=== PATIENT | male | born 2000 | race Caucasian/White ===

== ENCOUNTER 2024-06-18 14:47 | Outpatient (CLI) | payer BC, SELFPAY ==
[2024-06-18 19:06] LABS: Basophils # 0.1 K/mm3 (0-0.2); Basophils % 0.6 % (0.1-2.0); Eosinophils % 0.1 % (0.1-12.0); Hematocrit 47.7 % (42.0-52.0); Hemoglobin 15.7 g/dL (14.1-18.0); Lymphocytes # 1.3 K/mm3 (0.7-4.5); Mean Corpuscular HGB Conc 32.8 g/dL (31.8-35.4); Mean Corpuscular Hemoglobin 30.3 pg (27.0-31.2); Mean Corpuscular Volume 92.4 fl (80-94); Mean Platelet Volume 9.3 fl (7.4-10.4); Monocytes # 0.5 K/mm3 (0.1-1.0); Monocytes % 4.2 % (1.7-9.3); Neutrophils # 9.9 K/mm3 (1.8-7.8); Neutrophils % 84.1 % (37.0-80.0); Platelet Count 207 K/mm3 (142-424); Red Blood Count 5.17 M/mm3 (4.60-6.20); Red Cell Distribution Width 13.6 % (11.5-17.5); White Blood Count 11.7 K/mm3 (4.8-10.8)
[2024-06-18 19:38] LABS: Hemoglobin A1C 5.3 % (4.0-6.0)
[2024-06-18 19:53] LABS: Alanine Aminotransferase 32 U/L (12-78); Albumin Level 4.5 g/dl (3.5-5.0); Albumin/Globulin Ratio 1.5 (1.1-1.8); Alkaline Phosphatase 81 U/L (38-126); Anion Gap 10.8 mEq/L (5-15); Aspartate Amino Transferase 29 U/L (17-59); Bilirubin,Total 0.6 mg/dl (0.2-1.3); Blood Urea Nitrogen 10 mg/dl (9-20); Calcium 9.5 mg/dl (8.4-10.2); Carbon Dioxide 26 mmol/L (22.0-30.0); Chloride 106 mmol/L (98-107); Chol/HDL Ratio 3.9 (1-3.5); Cholesterol 213 mg/dl (140-200); Estimated Glomerular Filt Rate 140 ml/min (>60); GFR (African American) 169 ML/MIN (>60); Glucose 101 mg/dl (74-100); HDL Cholesterol 55 mg/dl (40-60); Potassium 3.8 mmoL/L (3.5-5.1); Sodium 139 mmol/L (136-145); Total Protein,Serum 7.5 g/dl (6.3-8.2); Triglycerides 90 mg/dl (30-150); VLDL Cholesterol 18 mg/dL (0-40)
[2024-06-18 20:08] LABS: Direct LDL Cholesterol 139.92 mg/dL (100-129)
[2024-06-18 22:29] LABS: Free T4 (Free Thyroxine) 1.15 ng/dl (0.78-2.19)
[2024-07-01 03:37] LABS: 1,25 Dihydroxy Vitamin D 54 pg/mL (.); 1,25-Dihydroxy, Vitamin D-2 <10 pg/mL (.); 1,25-Dihydroxy, Vitamin D-3 54 pg/mL (.)
== END 2024-06-18 23:59 | disposition home or self-care (01) ==
LOC: LAB.DROPOF 06-19 10:27
PROVIDERS: PCP Nurse Practitioner Acute Care; Visit Provider Nurse Practitioner Acute Care
DX: F33.9 Major depressive disorder, recurrent, unspecified (principal); F90.9 Attention-deficit hyperactivity disorder, unspecified type; F43.10 Post-traumatic stress disorder, unspecified; F41.1 Generalized anxiety disorder; F51.05 Insomnia due to other mental disorder
CPT/HCPCS: 80050; 80053; 80061; 82652; 83036; 84439; 84443; 85025

== ENCOUNTER 2025-05-30 15:10 | Outpatient (CLI) | payer MEDICAID, SELFPAY ==
--- OUTSIDE RECORDS SUMMARY | 2021-03-25 16:42 | XMS_ITS | Encounter Summary ---
Author Organization [place] [address] Care Team Providers Care Caustic Room Operator Name Role Phone Carolynn Graves MD Primary Care Provider [phone] Encounter Details Date Type Department Care Team (Latest Contact Info) Description 03/25/2021 4:42 PM EDT Hospital Encounter [facility] Referral Lab [address] [place] [address] Prosper Pierce, [place] [address], [place] [id number] Encounter for therapeutic drug level monitoring Social History Tobacco Use Types Packs/Day Years Used Date Smoking Tobacco: Never Smokeless Tobacco: Never Alcohol Use Standard Drinks/Week Comments Yes 0 (1 standard drink = 0.6 oz pur e alcohol) occ Overall Financial Resource Strain (CARDIA) Answe r Date Recorded How hard is it for you to pa y for the very basics like food, housing, medical care, and heating? Very hard 02/24/2024 PHQ-2 Answer Date Recorded PHQ-2 Total Score 6 11/22/2023 [facility] [place] [facility] Occupat [facility] - Occupational Stress Questionnaire Answer Date Recorded Do you feel stress - tense, restless, nervous, or anxious, or unable to sleep at night because your mind is troubled all the time - these days? Very much 02/24/2024 Exercise Vital Sign Answer Date Recorde d On average, how many days pe r week do you engage in moderate to strenuous exercise (like a brisk walk)? 5 days 02/24/2024 On average, how many minutes do you engage in exercise at this level? 60 min 02/24/2024 Hunger Vital Sign Answer Date Recorded Within the past 12 months, y ou worried that your food would run out before you got the money to buy more. Often true 02/24/20 24 Within the past 12 months, t he food you bought just didn't last and you didn't have money to get more. Often true 02/24/2024 PRAPARE - Transportation Answer Date Re corded In the past 12 months, has l ack of transportation kept you from medical appointments or from getting medications? Yes 12/2023 In the past 12 months, has l ack of transportation kept you from meetings, work, or from getting things needed for daily living? Yes 02/24/2024 Housing Stability Vital Sign Answer Guillermo e Recorded In the last 12 months, was t here a time when you were not able to pay the mortgage or rent on time? Yes 02/24/2024 Number of Times Moved in the Last Year Not on fi le 02/24/2024 Homeless in the Last Year Not on file 2023 Sex and Gender Information Value Date Recorded Sex Assigned at Not on file Legal Sex Male 9:17 PM EDT Gender Identity Not on file Sexual Orientation Not on file COVID-19 Exposure Response Date Recorded In the last 10 days, have yo u been in contact with someone who was confirmed or suspected to have Coronavirus/COVID-19? No / Unsure 09/08/2022 9:00 PM EST documented as of this encounter Functional Status * Cognitive and Functional Status Question Answer Date of Assessment Author Is the person deaf or does h e/she have serious difficulty hearing? No 11/22/2023 3:56 PM EST Elizabeth Maynard RMA Is the person blind or does he/she have serious difficulty seeing even when wearing glasses? No 11/22/2023 3:56 PM EST Elizabeth Cardenas RMA Does this person have seriou s difficulty walking or climbing stairs? No 11/22/2023 3:56 PM EST Elizabeth Boggs RMA Does this person have diffic ulty dressing or bathing? No 11/22/2023 3:56 PM EST Elizabeth Boggs RMA * Alcohol Screening Questionnaire (AUDIT) Question Answer Date of Assessment Author How often do you have a drin k containing alcohol? 0 04/20/2025 12:07 AM Diana Baldwin RN How many drinks containing alcohol do you have on a typical day when you are drinking? 0 04/20/2025 12:07 AM Ness Baldwin RN How often do you have six or more drinks on one occasion? 0 04/20/2025 12:07 AM Ness Baldwin RN AUDIT-C to Determine Rows 4-10 0 04/20/2025 12:07 AM Ness Baldwin RN * Alcohol Screening Score Answer Date of Assessment Author 0 04/20/2025 12:07 AM Ness Baldwin RN * Drug Screening Score Answer Date of Assessment Author 0 04/20/2025 12:07 AM Ness Baldwin RN * Is the person deaf or does he/she have serious difficulty hearing? Answer Date of Assessment Author No 02/12/2019 1:22 PM Nicho Murrell CMA * Is the person blind or does he/she have serious difficulty seeing even when wearing glasses? Answer Date of Assessment Author No 02/12/2019 1:22 PM Nicho Murrell CMA * Does this person have serious difficulty walking or climbing stairs? Answer Date of Assessment Author No 02/12/2019 1:22 PM Nicho Murrell CMA * Does this person have difficulty dressing or bathing? Answer Date of Assessment Author No 02/12/2019 1:22 PM Nicho Murrell CMA * Because of a physical, mental or emotional condition, does this person have difficulty doing errands alone such as visiting a doctor's office or shopping? Answer Date of Assessment Author No 02/12/2019 1:22 PM Nicho Murrell CMA * Question Answer Date of Assessment Author Little interest or pleasure in doing things 3 11/22/2023 3:56 PM Elizabeth Farr RMA Feeling down, depressed, or hopeless 3 11/22/2023 3:56 PM Elizabeth Farr RMA PHQ-2 Total Score 6 11/22/2023 3:56 PM Elizabeth Farr RMA Trouble falling or staying asleep, or sleeping too much 3 11/22/2023 3:56 PM Elizabeth Farr RMA Feeling tired or having little energy 3 11/22/2023 3:56 PM Elizabeth Farr RMA Poor appetite or overeating 3 11/22/2023 3:56 PM Elizabeth Farr RMA Feeling bad about yourself - or that you are a failure or have let yourself or your family down 3 11/22/2023 3:56 PM Elizabeth Farr RMA Trouble concentrating on things, such as reading the newspaper or watching television 3 11/22/2023 3:56 PM Elizabeth Farr RMA Moving or speaking so slowly that other people could have noticed. Or the opposite - being so fidgety or restless that you have been moving around a lot more than usual 3 11/22/2023 3:56 PM Elizabeth Farr RMA Thoughts that you would be better off , or of hurting yourself in some way 1 11/22/2023 3:56 PM Elizabeth Farr RMA PHQ-9 Total Score 25 11/22/2023 3:56 PM Elizabeth Farr RMA If you checked off any problems, how difficult have these problems made it for you to do your work, take care of things at home, or get along with other people? Extremely difficult 11/22/2023 3:56 PM Elizabeth Farr RMA * Question Answer Date of Assessment Author Feeling Nervous, Anxious, or on Edge 3 11/22/2023 3:57 PM Elizabeth Farr RMA Not Being Able to Stop or Co ntrol Worrying 3 11/22/2023 3:57 PM Elizabeth Farr RMA Worrying too Much About Diff erent Things 3 11/22/2023 3:57 PM Elizabeth Farr RMA Trouble Relaxing 3 11/22/2023 3:57 PM Elizabeth Cooney RMA Being so Restless That it is Hard to Sit Still 3 11/22/2023 3:57 PM EST Boggs, Elizabeth Norm, RMA Becoming Easily Annoyed or Irritable 3 11/22/2023 3:57 PM ABDI Boggs Elizabeth ZACKERY Zheng Feeling Afraid as if Somethi ng Awful Might Happen 3 11/22/2023 3:57 PM Elizabeth Farr RMA JAX-7 Total Score 21 11/22/2023 3:57 PM Elizabeth Farr RMA * Suicide Severity Rating Answer Date of Assessment Author High Risk 04/20/2025 2:10 PM EDT Ellie Eller RN * [place] Suicide Severity Rating Scale (Q shift for moderate and high) Question Answer Date of Assessment Author 1. In the past month, have y ou wished you were or wished you could go to sleep and not wake up? 0 04/20/2025 2:10 PM EDT Richelle Eller RN 2. In the past month, have y ou actually had any thoughts of killing yourself? (If no, skip to question 6) 1 04/20/2025 2:10 PM CEMT Richelle Eller RN 3. In the past month, have y ou been thinking about how you might do this? 2 04/20/2025 2:10 PM CEMT Richelle Eller RN 4. In the past month, have y ou had these thoughts and had some intention of acting on them? 20 04/20/2025 2:10 PM EDT Ellie Haynes RN 5. In the past month, have y ou started to work out or worked out the details of how to kill yourself? 0 04/20/2025 2:10 PM EDT Richelle Eller RN 6. Have you ever done anythi ng, started to do anything, or prepared to do anything to end your life? 3 04/20/2025 2:10 PM CEMT Richelle Eller RN Was this within the past 3 months? 20 04/20/2025 2:10 PM Richelle Martínez RN documented as of this encounter Mental Status * Cognitive and Functional Status Question Answer Entry Date Author Because of a physical, menta l or emotional condition, does this person have difficulty doing errands alone such as visiting a doctor's office or shopping? No 11/22/2023 3:56 PM Elizabeth Farr RMA Because of a physical, menta l or emotional condition, does this person have serious difficulty concentrating, remembering or making decisions? Yes 11/22/2023 3:56 PM Elizabeth Farr RMA * Because of a physical, mental or emotional condition, does this person have serious difficulty concentrating, remembering or making decisions? Answer Entry Date Author No 02/12/2019 1:22 PM EDT Nicho uRiz CMA documented in this encounter Plan of Treatment Scheduled Orders Name Type Priority Associated Diagnoses Orde r Schedule LIPID PANEL REFLEX Lab Routine Encounter for therapeutic drug level monitoring ONCE for 1 Occurrences starting 03/25/2021 until 04/29/2021 CBC WITH DIFF Lab Routine Encounter for therapeutic drug level monitoring ONCE for 1 Occurrences starting 03/25/2021 until 04/29/2021 BASIC METABOLIC PANEL Lab Routine Encounter for therapeutic drug level monitoring ONCE for 1 Occurrences starting 03/25/2021 until 04/29/2021 TSH REFLEX Lab Routine Encounter for therapeutic drug level monitoring ONCE for 1 Occurrences starting 03/25/2021 until 04/29/2021 RENAL FUNCTION PANEL Lab Routine Encounter for therapeutic drug level monitoring ONCE for 1 Occurrences starting 03/25/2021 until 04/29/2021 HEPATIC FUNCTION PANEL Lab Routine Encounter for therapeutic drug level monitoring ONCE for 1 Occurrences starting 03/25/2021 until 04/29/2021 HEMOGLOBIN A1C Lab Routine Encounter for therapeutic drug level monitoring ONCE for 1 Occurrences starting 03/25/2021 until 04/29/2021 T4, FREE (THYROXINE) Lab Routine Encounter for therapeutic drug level monitoring ONCE for 1 Occurrences starting 03/25/2021 until 04/29/2021 documented as of this encounter Goals Goal Patient Goal Type Associated Problems Recent Progress Patient-Stated? Author Maintain a healthy diet, exercise regularly and maintain an ideal body weight General No Linda Ruiz CMA documented as of this encounter Visit Diagnoses Diagnosis Encounter for therapeutic drug level monitoring Encounter for therapeutic drug monitoring documented in this encounter Additional Health Concerns Assessment Noted Time PHQ-9 Depression Total Score: 1 02/13/20 19 1:22 PM EDT PHQ-2 Depression Total Score: 1 02/13/20 19 1:22 PM EDT documented as of this encounter Care Teams Caustic Room Operator Relationship Specialty Start Date End Date Carolynn Graves MD [address] [place] [address] PCP - General Family Medicine 09/04/19 01/26/22 documented as of this encounter
--- OUTSIDE RECORDS SUMMARY | 2023-07-15 14:43 | XMS_ITS | Encounter Summary ---
Author Organization [facility] [place] [address] Care Team Providers Care Sewage Reticulation Drafting Officer Name Role Phone Abigail Spivey MD Primary Care Provider Encounter Details Date Type Department Care Team (Latest Contact Info) Description 07/15/2023 2:43 PM EDT Hospital Encounter [facility] Referral Lab [address] [place] [address] Jyoti Santiago, [place] [address] [place] [address] Other [facility] (current) drug therapy Social History Tobacco Use Types Packs/Day Years [...] Date Recorded PHQ-2 Total Score 6 11/22/2023 [facility] [place] of Occupat ional Health - Occupational Stress [...] on file Sexual Orientation Not on file documented as of this encounter Functional Status [...] dressing or bathing? No 11/22/2023 3:56 PM Elizabeth Farr RMA * Alcohol Screening Questionnaire (AUDIT) Question [...] on one occasion? 0 04/20/2025 12:07 AM Nses Baldwin RN AUDIT-C to Determine Rows 4-10 [...] hearing? Answer Date of Assessment Author No 12/29/2021 3:23 PM Vandana Hess MA * Is the person blind or does he/she have serious difficulty seeing even when wearing glasses? Answer Date of Assessment Author No 12/29/2021 3:23 PM Vandana Hess MA * Does this person have serious difficulty walking or climbing stairs? Answer Date of Assessment Author No 12/29/2021 3:23 PM Vandana Hess MA * Does this person have difficulty dressing or bathing? Answer Date of Assessment Author No 12/29/2021 3:23 PM Vandana Hess MA * Because of a physical, mental or emotional condition, does this person have difficulty doing errands alone such as visiting a doctor's office or shopping? Answer Date of Assessment Author No 12/29/2021 3:23 PM Vandana Hess MA * Question Answer Date of Assessment Author [...] to Sit Still 3 11/22/2023 3:57 PM Elizabeth Farr RMA Becoming Easily Annoyed or Irritable 3 11/22/2023 3:57 PM Elizabeth Farr RMA Feeling Afraid as if Somethi ng Awful Might Happen 3 11/22/2023 3:57 PM Elizabeth Farr RMA JAX-7 Total Score 21 11/22/2023 3:57 PM ABDI BoggsElizabeth RMA * Suicide Severity Rating Answer Date of Assessment Author High Risk 04/20/2025 2:10 PM Ellie Martínez RN * [place] Suicide Severity Rating Scale (Q shift for [...] to question 6) 1 04/20/2025 2:10 PM Richelle Martínez RN 3. In the past month, have y ou been thinking about how you might do this? 2 04/20/2025 2:10 PM CEMT Richelle Eller RN 4. In the past month, have y ou had these thoughts and had some intention of acting on them? 20 04/20/2025 2:10 PM CEMT Ellie Haynes RN 5. In the past month, have y ou started to work out or worked out the details of how to kill yourself? 0 04/20/2025 2:10 PM CEMT Richelle Eller RN 6. Have you ever done anythi ng, started to do anything, or prepared to do anything to end your life? 3 04/20/2025 2:10 PM Richelle Martínez RN Was this within the past 3 months? 20 04/20/2025 2:10 PM Richelle Martínez RN documented as of this encounter Mental Status * Cognitive and Functional Status Question Answer Entry Date Author Because of a physical, menta l or emotional condition, does this person have difficulty doing errands alone such as visiting a doctor's office or shopping? No 11/22/2023 3:56 PM Elizabeth Farr ZACKERY Zheng Because of a physical, menta l or emotional condition, does this person have serious difficulty concentrating, remembering or making decisions? Yes 11/22/2023 3:56 PM EST Elizabeth Boggs, ZACKERY * Because of a physical, mental or emotional condition, does this person have serious difficulty concentrating, remembering or making decisions? Answer Entry Date Author No 12/29/2021 3:23 PM EST Vandana Medina MA documented in this encounter Plan of Treatment Scheduled Orders Name Type Priority Associated Diagnoses Orde r Schedule CBC WITH DIFF Lab Routine Other local company intermodal truck driver (current) drug therapy ONCE for 1 Occurrences starting 07/15/2023 until 08/19/2023 COMPREHENSIVE METABOLIC PANEL Lab Routine Other [facility] (current) drug therapy ONCE for 1 Occurrences starting 07/15/2023 until 08/19/2023 HEMOGLOBIN A1C Lab Routine Other local company intermodal truck driver (current) drug therapy ONCE for 1 Occurrences starting 07/15/2023 until 08/19/2023 LIPID PANEL REFLEX Lab Routine Other [facility] (current) drug therapy ONCE for 1 Occurrences starting 07/15/2023 until 08/19/2023 THYROID STIMULATING HORMONE Lab Routine Other local company intermodal truck driver (current) drug therapy ONCE for 1 Occurrences starting 07/15/2023 until 08/19/2023 HEPATIC FUNCTION PANEL Lab Routine Other local company intermodal truck driver (current) drug therapy ONCE for 1 Occurrences starting 07/15/2023 until 08/19/2023 documented as of this encounter Goals Goal Patient Goal Type Associated Problems Recent Progress Patient-Stated? Author Maintain a healthy diet, exercise regularly and maintain an ideal body weight Linda Copeland CMA documented as of this encounter Visit Diagnoses Diagnosis Other local company intermodal truck driver (current) drug therapy documented in this encounter Additional Health Concerns Assessment Noted Time PHQ-9 Depression Total Score: 2 12/30/19 3:23 PM EST PHQ-2 Depression Total Score: 2 12/30/19 3:23 PM EST documented as of this encounter Care Teams Sewage Reticulation Drafting Officer Relationship Specialty Start Date End Date Abigail Spivey MD [address] [place] [address] PCP - General Family Medicine 01/27/22 documented as of this encounter
--- OUTSIDE RECORDS SUMMARY | 2023-08-02 15:02 | XMS_ITS | Encounter Summary ---
Author Organization [place] [address] Care Team Providers Care Splitter Head Name Role Phone Abigail Spivey MD Primary Care Provider Encounter Details Date Type Department Care Team (Latest Contact Info) Description 08/02/2023 3:02 PM EDT Hospital Encounter [facility] Referral Lab [address] [id number] Jesusita Aguilar, [place] [address] [phone] Encounter for general adult medical examination without abnormal findings Social History Tobacco Use Types Packs/Day Years [...] Date Recorded PHQ-2 Total Score 6 11/22/2023 [facility] [place] of Occupat ional Health - Occupational Stress [...] k containing alcohol? 0 04/20/2025 12:07 AM EDT Diana Marx RN How many drinks containing alcohol do [...] Happen 3 11/22/2023 3:57 PM Elizabeth Farr RMAugie JAX-7 Total Score 21 11/22/2023 3:57 PM ABDI Boggs Elizabeth Zheng AUGUSTAugie * Suicide Severity Rating Answer Date of Assessment Author High Risk 04/20/2025 2:10 PM Ellie Martínez RN * [place] Suicide Severity Rating Scale (Q shift for [...] end your life? 3 04/20/2025 2:10 PM EDRichelle Cook RN Was this within the past 3 [...] Yes 11/22/2023 3:56 PM EST Elizabeth Boggs, RMAugie * Because of a physical, mental or emotional condition, does this person have serious difficulty concentrating, remembering or making decisions? Answer Entry Date Author No 12/29/2021 3:23 PM Vandana Hess MA documented in this encounter Plan of Treatment Scheduled Orders Name Type Priority Associated Diagnoses Orde r Schedule HEMOGLOBIN A1C Lab Routine Encounter for general adult medical examination without abnormal findings ONCE for 1 Occurrences starting 08/02/2023 until 09/06/2023 TSH REFLEX Lab Routine Encounter for general adult medical examination without abnormal findings ONCE for 1 Occurrences starting 08/02/2023 until 09/06/2023 CBC WITH DIFF Lab Routine Encounter for general adult medical examination without abnormal findings ONCE for 1 Occurrences starting 08/02/2023 until 09/06/2023 COMPREHENSIVE METABOLIC PANEL Lab Routine Encounter for general adult medical examination without abnormal findings ONCE for 1 Occurrences starting 08/02/2023 until 09/06/2023 HEPATITIS B SURFACE ANTIBODY Lab Routine Encounter for general adult medical examination without abnormal findings ONCE for 1 Occurrences starting 08/02/2023 until 09/06/2023 MISCELLANEOUS LAB Lab Routine Encounter for general adult medical examination without abnormal findings ONCE for 1 Occurrences starting 08/02/2023 until 09/06/2023 LIPID PANEL REFLEX Lab Routine Encounter for general adult medical examination without abnormal findings ONCE for 1 Occurrences starting 08/02/2023 until 09/06/2023 VITAMIN D 25 HYDROXY Lab Routine Encounter for general adult medical examination without abnormal findings ONCE for 1 Occurrences starting 08/02/2023 until 09/06/2023 HIV AG/AB Lab Routine Encounter for general adult medical examination without abnormal findings ONCE for 1 Occurrences starting 08/02/2023 until 09/06/2023 HCV ANTIBODY SCREEN W/ REFLEX Lab Routine Encounter for general adult medical examination without abnormal findings ONCE for 1 Occurrences starting 08/02/2023 until 09/06/2023 documented as of this encounter Goals Goal Patient Goal Type Associated Problems Recent Progress Patient-Stated? Author Maintain a healthy diet, exercise regularly and maintain an ideal body weight Linda Copeland CMA documented as of this encounter Visit Diagnoses Diagnosis Encounter for general adult medical examination without abnormal findings Routine general medical examination at a health care facility documented in this encounter Additional Health Concerns Assessment Noted Time PHQ-9 Depression Total Score: 2 12/30/19 22 3:23 PM EST PHQ-2 Depression Total Score: 2 12/30/19 22 3:23 PM EST documented as of this encounter Care Teams Splitter Head Relationship Specialty Start Date End Date Abigail Spivey MD [address] [place] [address] PCP - General Family Medicine 01/27/22 documented as of this encounter
--- OUTSIDE RECORDS SUMMARY | 2025-04-19 23:32 | XMS_ITS | Encounter Summary ---
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 [facility] Potassium 3.9 3.5 - 5.0 mmol/L 04/20/2025 12:16 AM EDT [facility] Chloride 107 98 - 107 mmol/L 04/20/2025 12:16 AM EDT [facility] Total CO2 22 22 - 29 mmol/L 04/20/2025 12:16 AM EDT [facility] Anion Gap 12 7 - 16 mmol/L 04/20/2025 12:16 AM EDT [facility] Calcium 9.0 8.6 - 10.4 mg/dL 04/20/2025 12:16 AM EDT [facility] Glucose Lvl 105(H) 70 - 99 mg/dL 04/20/2025 12:16 AM EDT [facility] BUN 8 6 - 20 mg/dL 04/20/2025 12:16 AM EDT [facility] Creatinine 0.91 0.67 - 1.30 mg/dL 04/20/2025 12:16 AM EDT [facility] eGFR (CKD-EPIcr 2020) 121 >=60 mL/min/1.7 3 m2 04/20/2025 12:16 AM EDT [facility] Comment:Estimated GFR was ca lculated using the CKD-EPIcr (2020) equation refit without race. The equation is recommended by the [employer] - [place] [employer]ph[employer] Task Force. Blood VENOUS BLOOD / Unknown Venipuncture / Unknown 04/19/2025 11:47 PM EDT 04/19/2025 11:50 PM EDT Renetta Longoria MD CHEMISTRY ORDERABLES Archana l Result [facility] [address] [place] [address] * (ABNORMAL) CBC WITH DIFF (04/19/2025 11:47 PM EDT) WBC 8.3 3.7 - 10.3 x10(3)/mcL 04/19/2025 11:53 PM EDT [facility] RBC 4.75 4.60 - 6.10 x10(6)/mcL 04/19/2025 11:53 PM EDT [facility] Hgb 13.8 13.7 - 17.5 g/dL 04/19/2025 11:53 PM EDT [facility] Hct 41.5 40.0 - 51.0 % 04/19/2025 11:53 PM EDT [facility] MCV 87.4 80.0 - 100.0 fL 04/19/2025 11:53 PM EDT [facility] MCH 29.1 26.0 - 34.0 pg 04/19/2025 11:[address] [facility] MCHC 33.3 30.7 - 35.5 g/dL 04/19/2025 11:[address] [facility] RDW 12.6 <=14.9 % 04/19/2025 11:[address] [facility] Platelet 182 155 - 369 x10(3)/mcL 04/19/2025 11:[address] [facility] MPV 11.8 8.8 - 12.5 fL 04/19/2025 11:53 PM EDT [facility] Neut Percent 76.4 % 04/19/2025 11:53 PM EDT [facility] Comment:Neutrophils equals s egs plus bands Imm Gran% 0.4 % 04/19/2025 11:53 PM EDT [facility] Comment:Automated count of m etamyelocytes, myelocytes and promyelocytes. Lymph Percent 15.9 % 04/19/2025 11:53 PM EDT [facility] Ransom Percent 6.1 % 04/19/2025 11:53 PM EDT [facility] Eos Percent 0.4 % 04/19/2025 11:53 PM EDT [facility] Baso Percent 0.8 % 04/19/2025 11:53 PM EDT [facility] Neut # 6.3(H) 1.6 - 6.1 x10(3)/mcL 04/19/2025 11:53 PM EDT [facility] Comment:Neutrophils equals s egs plus bands IMMGRAN# 0.0 0.0 - 0.1 x10(3)/mcL 04/19/2025 11:53 PM EDT [facility] Comment:Automated count of m etamyelocytes, myelocytes and promyelocytes. An absolute IG <0.1 is reported as 0.0. Lymph # 1.3 1.2 - 3.9 x10(3)/mcL 04/19/2025 11:53 PM EDT [facility] Ransom # 0.5 0.3 - 0.9 x10(3)/mcL 04/19/2025 11:53 PM EDT [facility] Eos# 0.0 0.0 - 0.5 x10(3)/[facility] 04/19/2025 11:53 PM EDT [facility] Baso # 0.1 0.0 - 0.1 x10(3)/mcL 04/19/2025 11:53 PM EDT [facility] Blood VENOUS BLOOD / Unknown Venipuncture / Unknown 04/19/2025 11:47 PM EDT 04/19/2025 11:50 PM EDT Renetta Longoria MD HEMATOLOGY ORDERABLES Fin al Result Performing Organization Address City/[facility]/ZIP Co de Phone Number [facility] [address] [place] [phone] * (ABNORMAL) DRUG CONFIRMATION, CANNABINOIDS - URINE (04/19/2025 11:45 PM EDT) THC 33(H) Cutoff 10 ng/mL ng/mL 04/21/2025 10:41 AM EDT [facility] THC Glucuronide >200(H) Cutoff 10 ng/mL ng/mL 04/21/2025 10:41 AM EDT [facility] Urine STRUCTURE OF URINARY TRACT PROPER / Unknown 04/19/2025 11:45 PM EDT 04/20/2025 12:00 AM EDT Renetta Longoria MD URINE ORDERABLES Final Re sult [facility] [address] [facility] , [place] [address] * (ABNORMAL) DRUGS OF ABUSE WITH REFLEX TO CONFIRMATION, URINE (04/19/2025 11:45 PM EDT) 6 AM (Heroin) Absent Cutoff 10 ng/mL 04/20/2025 1:21 AM EDT [facility] Amphetamines Absent Cutoff 500 ng/mL 04/20/2025 1:21 AM EDT [facility] Barbiturates Absent Cutoff 200 ng/mL 04/20/2025 1:21 AM EDT [facility] Benzodiazepines Absent Cutoff 200 ng/mL 04/20/2025 1:21 AM EDT [facility] Buprenorphine Absent Cutoff 5 ng/mL 04/20/2025 1:21 AM EDT [facility] Cannabinoid Metabolite Presumptive Pos(A) Cutoff 50 ng/mL 04/20/2025 1:21 AM EDT [facility] Cocaine Metabolite Absent Cutoff 150 ng/mL 04/20/2025 1:21 AM EDT [facility] Fentanyl Absent Cutoff 5 ng/mL 04/20/2025 1:21 AM EDT [facility] Methadone and Metabolite Absent Cutoff 300 ng/mL 04/20/2025 1:21 AM EDT [facility] Opiate Absent Cutoff 300 ng/mL 04/20/2025 1:21 AM EDT [facility] Oxycodone Lvl Absent Cutoff 100 ng/mL 04/20/2025 1:21 AM EDT [facility] Urine Creatinine 78.3 mg/dL 04/20/20 1:21 AM EDT [facility] Comment: Greater than 20: Consistent with valid sample Greater than 2 but less than 20: Possible dilution Less than 2: Questionable valid sample Urine STRUCTURE OF URINARY TRACT PROPER / Unknown 04/19/2025 11:45 PM EDT 04/20/2025 12:00 AM EDT Narrative [facility] - 04/20/2025 1:21 AM EDT These drug classes have been qualitatively screened by immunoassay and are for medical purposes only. Results should not be used for non-medical purposes. Results reported as presumptive positive will be sent for confirmation. Due to possible factors, such as, dilute/adulterated urine, concentration of drug/metabolite being below the cut-off, or antibody specificity of test reagent, a negative result does not rule out drug use. These results are only valid for urine specimens. Any contamination with vaginal pool/amniotic fluid could cause erroneous results. us Renetta Longoria MD URINE ORDERABLES Final Re sult [facility] [address] [facility] , [place] [address] * EK EKG 12 LEAD (04/19/2025 11:34 PM EDT) Anatomical Region Laterality Modality Electrocardiogra phy 04/19/2025 11:5 0 PM EDT Impressions 04/20/2025 11:47 AM EDT [facility] Test Date: 2025-04-19 Pat Name: [facility] Department: DEPID Room: [facility] Gender: Male Slot Supervisor: Fabrizio : 2000 Requested By: RENETTA Shah Order Number: [id number] Isaiah MD: Giacomo Smith Measurements Intervals [place] Rate: 57 P: 20 [place]: 118 QRS: 59 QRSD: 83 T: 27 QT: 393 QTc: 386 Interpretive Statements SINUS BRADYCARDIA WITH SHORT [place] INTERVAL NONSPECIFIC T-WAVE ABNORMALITY WHEN COMPARED TO PREVIOUS ECG:NO SIGNIFICANT CHANGES ARE NOTED Electronically Signed On 04-20-2025 11:47:12 EDT by Giacomo Smith Narrative Procedure Note Giacomo Smith MD - 04/20/2025 IMPRESSION [facility] Test Date: 2025-04-19 Pat Name: [facility] Department: DEPID Room: [facility] Gender: Male Slot Supervisor: Fabrizio : 2000 Requested By: RENETTA Shah Order Number: [id number] Isaiah LANG: Giacomo Smith Measurements Intervals [place] Rate: 57 P: 20 [place]: 118 QRS: 59 QRSD: 83 T: 27 QT: 393 QTc: 386 Interpretive Statements SINUS BRADYCARDIA WITH SHORT [place] INTERVAL NONSPECIFIC T-WAVE ABNORMALITY WHEN COMPARED TO PREVIOUS ECG:NO SIGNIFICANT CHANGES ARE NOTED Electronically Signed On 04-20-2025 11:47:12 EDT by Giacomo Smith Renetta Longoria MD IMG ECG ORDERABLES Final Result documented in this encounter Visit Diagnoses Diagnosis Intentional drug overdose, initial encounter (HCC)- Primary documented in this encounter Administered Medications Inactive Administered Medications - up to 1 most recent administrations Medication Order MAR Action Action Date Dose Rate Site ondansetron (ZOFRAN-ODT) disintegrating tablet 4 mg 4 mg, Oral, ONCE, 1 dose, On 04/20/25 at 0200, Dissolve in mouth Given 04/20/2025 1:52 AM EDT 4 mg documented in this encounter Active and Recently Administered Medications Times are shown in EDT. Scheduled Medication Order 04/18/2025 04/19/2025 04/20/2025 ondansetron (ZOFRAN-ODT) disintegrating tablet 4 mg (COMPLETED) 4 mg, Oral, ONCE, 1 dose, On 04/20/25 at 0200, Dissolve in mouth 0152 (Given - Provid er: Ness Marx RN) documented in this encounter Orders Medications Ordered That Luis Fernando ht Not Have Been Administered Count Last Ordered Date First Ordered Date ondansetron (ZOFRAN-ODT) dis integrating tablet 4 mg 1 04/20/2025 documented in this encounter Additional Health Concerns Assessment Noted Time PHQ-9 Depression Total Score: 25 024 3:56 PM EST PHQ-2 Depression Total Score: 6 11/22/19 24 3:56 PM EST documented as of this encounter Care Teams Photographer Assistant Relationship Specialty Start Date End Date Abigail Spivey MD [address] [place] [address] PCP - General Family Medicine 01/27/22 documented as of this encounter
[2025-05-30 20:22] LABS: Albumin Level 4.7 g/dl (3.5-5.0); Chloride 104 mmol/L (98-107)
[2025-05-30 20:23] LABS: Potassium 4.5 mmoL/L (3.5-5.1); Sodium 141 mmol/L (136-145)
[2025-05-30 20:25] LABS: Alanine Aminotransferase 19 U/L (12-78); Albumin/Globulin Ratio 1.7 (1.1-1.8); Anion Gap 17.5 mEq/L (5-15); Aspartate Amino Transferase 24 U/L (17-59); Blood Urea Nitrogen 6 mg/dl (9-20); Carbon Dioxide 24 mmol/L (22.0-30.0); Creatinine,Serum 0.70 mg/dl (0.66-1.25); Estimated Glomerular Filt Rate 139 ml/min (>60); GFR (African American) 168 ML/MIN (>60); Globulin 2.7 g/dL (1.3-3.2); Total Protein,Serum 7.4 g/dl (6.3-8.2)
[2025-05-30 20:26] LABS: Alkaline Phosphatase 105 U/L (38-126); Bilirubin,Total 0.3 mg/dl (0.2-1.3); Calcium 9.7 mg/dl (8.4-10.2); Cholesterol 154 mg/dl (140-200); Glucose 106 mg/dl (74-100); HDL Cholesterol 44 mg/dl (40-60); Triglycerides 168 mg/dl (30-150)
[2025-05-30 20:27] LABS: Hematocrit 47.2 % (42.0-52.0); Hemoglobin 15.5 g/dL (14.1-18.0); Immature Granulocytes % 0.4 %; Mean Corpuscular HGB Conc 32.8 g/dL (31.8-35.4); Mean Corpuscular Hemoglobin 29.5 pg (27.0-31.2); Mean Corpuscular Volume 89.7 fl (80-94); Nucleated Red Blood Cells % 0 %; Platelet Count 221 K/mm3 (142-424); Red Blood Count 5.26 M/mm3 (4.60-6.20); Red Cell Distribution Width-SD 42.1 fL; White Blood Count 8.4 K/mm3 (4.8-10.8)
[2025-05-30 20:41] LABS: T4 (Thyroxine) 5.7 ug/dl (5.53-11.0)
[2025-05-30 20:45] LABS: 25-OH Vitamin D, Total 16.6 ng/mL (30-100)
[2025-05-30 20:54] LABS: Thyroid Stimulating Hormone 1.79 uIU/mL (0.465-4.68)
--- OUTSIDE RECORDS SUMMARY | 2025-05-31 10:29 | XMS_ITS ---
Author Organization [employer] [facility] Address [address] [place] [address] Phone Care Team Providers Care Buildings And Grounds Director Name Role Phone Unavailable Unavailable Conditions or Problems No information available. Medications No information available. Medications Administered No information available. Allergies, Adverse Reactions, Alerts No information available. Results No information available. Plan of Care No information available. Procedures No information available. Vital Signs No information available. Immunizations No information available. Advance Directives No information available.
--- OUTSIDE RECORDS SUMMARY | 2025-05-31 10:30 | XMS_ITS | Clinical Summary ---
Author Organization [facility] Address [address] [place] [phone] Phone Care Team Providers Care Hog Stomach Preparer Name Role Phone Abigail Spivey MD Primary Care Provider Allergies No known active allergies Medications * This document contains information received from the source organization and may not represent a complete record from that organization. lamoTRIgine (LAMICTAL) 100 mg Oral TabletIndications :Recurrent severe major depressive disorder with anxiety (HCC),PTSD (post-traumatic stress disorder) Take 0.5 Tablets by mouth 2 times daily. 30 Tablet 2 Active venlafaxine (EFFEXOR XR) 150 mg Oral Capsule, Sust. Release 24 hr Take 150 mg by mouth daily. Active cariprazine (VRAYLAR) 1.5 mg Oral Capsule Take 1.5 mg by mouth daily. Active traZODone (DESYREL) 150 mg Oral Tablet Take 150 mg by mouth nightly. Active venlafaxine (EFFEXOR-XR) 75 mg Oral Capsule, Sust. Release 24 hr Take by mouth daily. Active traZODone (DESYREL) 50 mg Oral Tablet Take 50 mg by mouth nightly. Active propranoloL (INDERAL) 10 mg Oral Tablet Take 10 mg by mouth 3 times daily. Active lisinopriL (PRINIVIL;ZESTRIL ) 10 mg Oral TabletIndications :Essential hypertension TAKE 1 TABLET BY MOUTH DAILY 90 Tablet 2 4 Active HYDROcodone-aceta minophen (NORCO) 5-325 mg Oral Tablet Take 1 Tablet by mouth every 12 hours as needed for Acute Pain (R52) for up to 6 doses. 6 Tablet 4 Active Active Problems Patient Care Coordination No te Formatting of this note migh t be different from the original. [facility]- NO SHOW- 05/24/2024 [facility]: NS SUSTAINABLE SYSTEMS ANALYST Appt 06/14/24 Problem Noted Date Diagnosed Date Borderline personality disorder 04/20/2025 ADHD (attention deficit hype ractivity disorder), combined type 09/05/2018 Overview (02/12/2019): Overview: Historical PTSD (post-traumatic stress disorder) 01/22/2018 Anorexia nervosa 09/02/2017 Recurrent severe major depressive disorder with anxiety 09/02/2017 History of self-harm 06/13/2017 History of suicidal ideation 06/13/2017 Murmur 06/13/2017 Overview (02/12/2019): Overview: Benign Still's, evaluated by [facility] Cardiology 2013 Resolved Problems Problem Noted Date Diagnosed Date Resolved Date Syncope 05/21/2021 07/30/2022 Reactive depression 05/08/2019 07/30/20 22 Anxiety 05/08/2019 07/30/2022 Encounters Date Type Department Care Team Description 04/20/2025 Travel 04/19/2025 11:32 PM EDT - 04/20/2025 4:20 PM EDT Emergency [facility] Emergency [address] [place] [address] Stan Longoria MD Strohmaier, Taylor L, MD Intentional drug overdose, initial encounter ([facility]) (Primary Dx) Discharge Disposition: Home or Self Care from Last 3 Months Immunizations Immunization Administration Dates Next Due DTaP (Daptacel) 12/15/2005, 2,07/14/2001,04/12,01/06/2001 HPV 9 Valent 07/10/2013,01/31/2013,11/27/2012 Hep A/Hep B 12/22/2001,04/12/2001,01/06/2001 Hepatitis A, Ped/Adol, 2 Dose 10/14/2011, 008 HiB (PRP-T) 12/22/2001,04/12/2001,01/06/2001 IPV 12/15/2005, 1,04/12/2001,01/06 Influenza Vaccine Quadrivalent 12/29/2021 Influenza Vaccine Quadrivalent PF 11/22/2023 MMR 12/15/2005,12/22/2001 Meningococcal Conjugate 06/18/2018 Meningococcal, Unspecified Formulation 3 Moderna SARS-CoV-2 Vaccine 1 2+ Yrs (Light blue border) 01/27/2022,12/29/2021 Pneumococcal Conjugate Vacci ne 13 Valent 07/14/2002,04/12/2001,01/06/2001 Tdap 06/18/2018,03/21/2017,11/27/2012 Varicella 07/20/2007,04/06/2002 Surgical History Surgery Date Site/Laterality Comments APPENDECTOMY EYE SURGERY IR PICC INSERTION EQUAL OR > 5 YEARS 08/22/2017 IR PICC INSERTION EQUAL OR > 5 YEARS 08/22/2017 Medical History Medical History Date Comments Depression Blood loss anemia 2016 Anorexia Depression History of self-harm Social History Tobacco Use Types Packs/Day Years [...] Date Recorded PHQ-2 Total Score 6 11/22/2023 [facility] - Occupational Stress [...] on file Sexual Orientation Not on file Obstetrics History Last Filed Vital Signs Vital Sign Reading Time Taken Comments Blood Pressure 123/74 04/20/2025 12:20 PM EDT Pulse 74 04/20/2025 12:20 PM EDT Temperature 37.1 C (98.8 F) 04/19/2025 11:54 PM EDT Respiratory Rate 14 04/20/2025 5:59 AM EDT Oxygen Saturation 97% 04/20/2025 12:48 PM EDT Inhaled Oxygen Concentration - - Weight 75.3 kg (166 lb) 04/01/2024 8:34 PM EDT Height 167.6 cm (5' 6 ) 04/01/2024 8:34 PM EDT Body Mass Index 26.79 04/01/2024 8:34 PM EDT Plan of Treatment Health Maintenance Due Date Last Done Comments Annual Wellness Exam 2003 COVID-19 Vaccine ( season) 2024 01/27/2022, 12/29/2021 Influenza Vaccine (#1) 2025 , 12/29/2021, 08/25/2018, Additional history exists DTaP/TDaP/Td (9 - Td or Tdap) 06/18/2028 06/18/2018, 03/21/2017, 11/27/2012, Additional history exists Hepatitis B Vaccine Completed 12/22/2001, 04/12/2001, 01/06/2001 Pneumococcal Vaccine 0-49 Completed 2001, 04/12/2001, 01/06/2001 HPV Completed 07/10/2013, 01/22, 11/27/2012 Meningococcal B Vaccine Aged Out No l onger eligible based on patient's age to complete this topic Goals Goal Patient Goal Type Associated Problems Recent Progress Patient-Stated? Author Maintain a healthy diet, exercise regularly and maintain an ideal body weight General Linda Vargas ASSISTANT SALES MANAGER Procedures Procedure Name Priority Date/Time Associated Diagnosis Comments ACETAMINOPHEN LEVEL STAT 04/19/2025 1 1:47 PM EDT SALICYLATE LEVEL STAT 04/19/2025 11:4 7 PM EDT ALCOHOL MEDICAL STAT 04/19/2025 11:47 PM EDT BASIC METABOLIC PANEL STAT 04/19/2025 11:47 PM EDT CBC WITH DIFF STAT 04/19/2025 11:47 PM EDT DRUG CONFIRMATION, CANNABINOIDS - URINE STAT 04/19/2025 11:45 PM EDT DRUGS OF ABUSE WITH REFLEX TO CONFIRMATION, URINE STAT 04/19/2025 11:45 PM EDT EK EKG 12 LEAD STAT 04/19/2025 11:34 PM EDT from Last 3 Months Results * (ABNORMAL) CBC WITH DIFF (04/19/2025 11:47 PM EDT) WBC 8.3 3.7 - 10.3 x10(3)/mcL 04/19/2025 11:53 PM EDT [facility] RBC 4.75 4.60 - 6.10 x10(6)/mcL 04/19/2025 11:53 PM EDT [facility] Hgb 13.8 13.7 - 17.5 g/dL 04/19/2025 11:53 PM EDT [facility] Hct 41.5 40.0 - 51.0 % 04/19/2025 11:53 PM EDT [facility] MCV 87.4 80.0 - 100.0 fL 04/19/2025 11:53 PM EDT [facility] MCH 29.1 26.0 - 34.0 pg 04/19/2025 11:53 PM EDT [facility] MCHC 33.3 30.7 - 35.5 g/dL 04/19/2025 11:53 PM EDT [facility] RDW 12.6 <=14.9 % 04/19/2025 11:53 PM EDT [facility] Platelet 182 155 - 369 x10(3)/mcL 04/19/2025 11:53 PM EDT [facility] MPV 11.8 8.8 - 12.5 fL 04/19/2025 11:53 PM EDT [facility] Neut Percent 76.4 % 04/19/2025 11:53 PM EDT [facility] Comment:Neutrophils equals s egs plus bands Imm Gran% 0.4 % 04/19/2025 11:53 PM EDT [facility] Comment:Automated count of m etamyelocytes, myelocytes and promyelocytes. Lymph Percent 15.9 % 04/19/2025 11:53 PM EDT [facility] [place] Percent 6.1 % 04/19/2025 11:53 PM EDT [facility] Eos Percent 0.4 % 04/19/2025 11:53 PM EDT [facility] Baso Percent 0.8 % 04/19/2025 11:53 PM EDT [facility] Neut # 6.3(H) 1.6 - 6.1 x10(3)/mcL 04/19/2025 11:53 PM EDT [facility] Comment:Neutrophils equals s egs plus bands IMMGRAN# 0.0 0.0 - 0.1 x10(3)/mcL 04/19/2025 11:53 PM EDT [facility] Comment:Automated count of m etamyelocytes, myelocytes and promyelocytes. An absolute IG <0.1 is reported as 0.0. Lymph # 1.3 1.2 - 3.9 x10(3)/[facility] 04/19/2025 11:53 PM EDT [facility] [place] # 0.5 0.3 - 0.9 x10(3)/[facility] 04/19/2025 11:53 PM EDT [facility] Eos# 0.0 0.0 - 0.5 x10(3)/[facility] 04/19/2025 11:53 PM EDT [facility] Baso # 0.1 0.0 - 0.1 x10(3)/[facility] 04/19/2025 11:53 PM EDT [facility] Blood VENOUS BLOOD / Unknown Venipuncture / Unknown 04/19/2025 11:47 PM EDT 04/19/2025 11:50 PM EDT Stan Longoria MD HEMATOLOGY ORDERABLES Fin al Result Performing Organization Address [facility] de Phone Number [facility] [address] [place] [address] * ALCOHOL MEDICAL (04/19/2025 11:47 PM EDT) [facility] Alcohol Medical <10 <=10 mg/dL 12:16 AM EDT [facility] Comment: 50-100 mg/dL - Flushing, slowing of reflexes, impaired visual acuity > 100 mg/dL - Depression of TECHNICAL AGRONOMIST > 400 mg/dL - Fatalities reported Blood VENOUS BLOOD / Unknown Venipuncture / Unknown 04/19/2025 11:47 PM EDT 04/19/2025 11:50 PM EDT Stan Longoria MD CHEMISTRY ORDERABLES Archana l Result Performing Organization Address [facility]/ZIP Co de Phone Number [facility] [address] [place] [address] * (ABNORMAL) ACETAMINOPHEN LEVEL (04/19/2025 11:47 PM EDT) Acetaminophen Lvl <5.0(L) 10.0 - 30.0 mcg/mL 04/20/2025 12:17 AM EDT [facility] Blood VENOUS BLOOD / Unknown Venipuncture / Unknown 04/19/2025 11:47 PM EDT 04/19/2025 11:50 PM EDT Narrative [facility] - 04/20/2025 12:17 AM EDT Supratherapeutic: > 35 mcg/ml Toxic: > 200 mcg/ml (4h post ingestion) > 100 mcg/ml (8h post ingestion) > 50 mcg/ml (12h post ingestion) Stan Longoria MD CHEMISTRY ORDERABLES Archana l Result Performing Organization Address [facility] Phone Number [facility] [address] [place] [address] * SALICYLATE LEVEL (04/19/2025 11:47 PM EDT) Salicylate <0.5 <=30.0 mg/dL 04/20/2025 12:17 AM EDT [facility] Comment: Therapeutic range for anti-pyretic/analgesic conditions 3-10 mg/dL Therapeutic range for anti-inflammatory/rheumatic fever conditions 15-30 mg/dL Toxic range >30 mg/dL Blood VENOUS BLOOD / Unknown Venipuncture / Unknown 04/19/2025 11:47 PM EDT 04/19/2025 11:50 PM EDT Stan Longoria MD CHEMISTRY ORDERABLES Archana l Result Performing Organization Address [facility] de Phone Number [facility] [address] [place] [address] * (ABNORMAL) BASIC METABOLIC PANEL (04/19/2025 11:47 PM EDT) Sodium 141 136 - 145 mmol/L 04/20/2025 12:16 AM EDT [facility] Potassium 3.9 3.5 - 5.0 mmol/L 04/20/2025 12:16 AM EDT [facility] Chloride 107 98 - 107 mmol/L 04/20/2025 12:16 AM EDT [facility] Total CO2 22 22 - 29 mmol/L 04/20/2025 12:16 AM EDT [facility] Anion Gap 12 7 - 16 mmol/L 04/20/2025 12:16 AM EDT [facility] Calcium 9.0 8.6 - 10.4 mg/dL 04/20/2025 12:16 AM EDT [facility] Glucose Lvl 105(H) 70 - 99 mg/dL 04/20/2025 12:16 AM EDT [facility] BUN 8 6 - 20 mg/dL 04/20/2025 12:16 AM EDT [facility] Creatinine 0.91 0.67 - 1.30 mg/dL 04/20/2025 12:16 AM EDT [facility] eGFR (CKD-EPIcr 2020) 121 >=60 mL/min/1.7 3 m2 04/20/2025 12:16 AM EDT [facility] Comment:Estimated GFR was ca lculated using the CKD-EPIcr (2020) equation refit without race. The equation is recommended by the National Kidney Foundation - [place] [employer] of Nephrology Task Force. Blood VENOUS BLOOD / Unknown Venipuncture / Unknown 04/19/2025 11:47 PM EDT 04/19/2025 11:50 PM EDT Stan Longoria MD CHEMISTRY ORDERABLES Archana dangelo Result [facility] [address] [place] [address] * (ABNORMAL) DRUG CONFIRMATION, CANNABINOIDS - URINE (04/19/2025 11:45 PM EDT) THC 33(H) Cutoff 10 ng/mL ng/mL 04/21/2025 10:41 AM EDT [facility] THC Glucuronide >200(H) Cutoff 10 ng/mL ng/mL 04/21/2025 10:41 AM EDT [facility] Urine STRUCTURE OF URINARY TRACT PROPER / Unknown 04/19/2025 11:45 PM EDT 04/20/2025 12:00 AM EDT us Stan Longoria MD URINE ORDERABLES Final Re sult [facility], [facility] [address] [facility] , [place] [address] * (ABNORMAL) DRUGS OF ABUSE WITH REFLEX TO CONFIRMATION, URINE (04/19/2025 11:45 PM EDT) 6 AM (Heroin) Absent Cutoff 10 ng/mL 04/20/2025 1:21 AM EDT [facility] Amphetamines Absent Cutoff 500 ng/mL 04/20/2025 1:21 AM EDT [facility] Barbiturates Absent Cutoff 200 ng/mL 04/20/2025 1:21 AM EDT [facility] Benzodiazepines Absent Cutoff 200 ng/mL 04/20/2025 1:21 AM EDT [facility] Buprenorphine Absent Cutoff 5 ng/mL 04/20/2025 1:21 AM EDT [facility] Cannabinoid Metabolite Presumptive Pos(A) Cutoff 50 ng/mL 04/20/2025 1:21 AM EDT [facility] Cocaine Metabolite Absent Cutoff 150 ng/mL 04/20/2025 1:21 AM EDT [facility] Fentanyl Absent Cutoff 5 ng/mL 04/20/2025 1:21 AM EDT [facility] Methadone and Metabolite Absent Cutoff 300 ng/mL 04/20/2025 1:21 AM EDT [facility] Opiate Absent Cutoff 300 ng/mL 04/20/2025 1:21 AM EDT [facility] Oxycodone Lvl Absent Cutoff 100 ng/mL 04/20/2025 1:21 AM EDT [facility] Urine Creatinine 78.3 mg/dL 04/20/20 1:21 AM EDT [facility] Comment: Greater than 20: Consistent with valid sample Greater than 2 but less than 20: Possible dilution Less than 2: Questionable valid sample Urine STRUCTURE OF URINARY TRACT PROPER / Unknown 04/19/2025 11:45 PM EDT 04/20/2025 12:00 AM EDT Narrative [facility] - 04/20/2025 1:21 AM EDT These drug [...] pool/amniotic fluid could cause erroneous results. us Stan Longoria MD URINE ORDERABLES Final Re sult [employer] [address] [place] [address], [place] [address] * EK EKG 12 LEAD (04/19/2025 11:34 PM EDT) Anatomical Region Laterality Modality Electrocardiogra phy 04/19/2025 11:5 0 PM EDT Impressions 04/20/2025 11:47 AM EDT [facility] Test Date: 2025-04-19 Pat Name: [facility] Department: DEPID Room: [facility] Gender: Male Plastic Frame Inserter: Fabrizio : 2000 Requested By: STAN Shah Order Number: [id number] Reading MD: Giacomo Smith Measurements Intervals Douglas Rate: 57 P: 20 DC: 118 QRS: 59 QRSD: 83 T: 27 QT: 393 QTc: 386 Interpretive Statements SINUS BRADYCARDIA WITH SHORT DC INTERVAL NONSPECIFIC T-WAVE ABNORMALITY WHEN COMPARED TO PREVIOUS ECG:NO SIGNIFICANT CHANGES ARE NOTED Electronically Signed On 04-20-2025 11:47:12 EDT by Giacomo Smith Narrative Procedure Note Giacomo Smith MD - 04/20/2025 IMPRESSION [facility] Test Date: 2025-04-19 Pat Name: SVEN BALDERAS Department: DEPID Room: [facility] Gender: Male Plastic Frame Inserter: Fabrizio : 2000 Requested By: STAN Shah Order Number: [id number] Reading MD: Giacomo Smith Measurements Intervals Douglas Rate: 57 P: 20 DC: 118 QRS: 59 QRSD: 83 T: 27 QT: 393 QTc: 386 Interpretive Statements SINUS BRADYCARDIA WITH SHORT DC INTERVAL NONSPECIFIC T-WAVE ABNORMALITY WHEN COMPARED TO PREVIOUS ECG:NO SIGNIFICANT CHANGES ARE NOTED Electronically Signed On 04-20-2025 11:47:12 EDT by Giacomo Smith us Stan Longoria MD IMG ECG ORDERABLES Final Result from Last 3 Months Insurance [address] [place] [address] [place] [address] [id number] [phone] Care Teams Hog Stomach Preparer Relationship Specialty Start Date End Date Abigail Spivey MD [address] [place] [address] PCP - General Family Medicine 01/27/22
--- OUTSIDE RECORDS SUMMARY | 2025-05-31 10:30 | XMS_ITS | Encounter Summary ---
Author Organization [facility] [place] [address] Care Team Providers Care Chinese Medicine Practitioner Name Role Phone Abigail Spivey MD Primary Care Provider Encounter Details Date Type Department Care Team (Latest Contact Info) Description 04/20/2025 Travel Social History Tobacco Use Types Packs/Day Years [...] Recorded PHQ-2 Total Score 6 11/22/2023 [facility] [place] [facility] Occupat ional Health - Occupational Stress [...] as of this encounter Functional Status * Alcohol Screening [...] 2:10 PM EDT Ellie Eller RN * Delta Suicide Severity Rating Scale (Q shift for [...] 3 months? 20 04/20/2025 2:10 PM EDT Rafita, Rhiann on, RN documented as of this encounter Mental Status * Because of a physical, mental or emotional condition, does this person have serious difficulty concentrating, remembering or making decisions? Answer Entry Date Author Yes 11/22/2023 3:56 PM EST Mitch Boggs am, RMA documented in this encounter Plan of Treatment Not on file documented as of this encounter Goals Goal Patient Goal Type Associated Problems Recent Progress Patient-Stated? Author Maintain a healthy diet, exercise regularly and maintain an ideal body weight General No Joseph, Linda Smith, PHYSICAL SCIENCES INSTRUCTOR documented as of this encounter Visit Diagnoses Not on filedocumented in this encounter Additional Health Concerns Assessment Noted Time PHQ-9 Depression Total Score: 25 024 3:56 PM EST PHQ-2 Depression Total Score: 6 11/22/19 24 3:56 PM EST documented as of this encounter Care Teams Chinese Medicine Practitioner Relationship Specialty Start Date End Date Abigail Spivey MD [address] [place] [address] PCP - General Family Medicine 01/27/22 documented as of this encounter
== END 2025-05-30 23:59 | disposition home or self-care (01) ==
LOC: LAB.DROPOF 05-31 10:25
PROVIDERS: PCP Nurse Practitioner Acute Care; Visit Provider Nurse Practitioner Acute Care
DX: F90.0 Attention-deficit hyperactivity disorder, predominantly inattentive type (principal); F41.1 Generalized anxiety disorder; F33.1 Major depressive disorder, recurrent, moderate; F51.05 Insomnia due to other mental disorder; F43.10 Post-traumatic stress disorder, unspecified
CPT/HCPCS: 80053; 80061; 82306; 84436; 84443; 85025